=== PATIENT | female | born 1960 | race African-American/Black ===

== ENCOUNTER 2018-09-21 05:49 | Inpatient (IN) | payer OTHER ==
[2018-09-21] VITALS (8 sets, daily range): BP systolic 148–169; BP diastolic 89–103
[~2018-09-21] VITALS: Ht 167.6 cm; Wt 80.3 kg
[2018-09-21 07:14] LABS: CHLORIDE 102 mEq/L (98-107)
[2018-09-21 07:21] LABS: BASOPHILS % 0.3 % (0.0-2.0); EOSINOPHILS % 0.1 % (0.0-5.0); HEMATOCRIT. 39.8 % (36.0-48.0); HEMOGLOBIN. 12.9 g/dL (12.0-16.0); LYMPHOCYTES % 15.6 % (20.0-50.0); MEAN CORPUSCULAR HEMOGLOBIN 25.7 pg (28.0-32.0); MEAN CORPUSCULAR VOLUME 79.1 fL (81.0-99.0); MEAN PLATELET VOLUME 9.5 fl (7.4-10.4); MONOCYTES % 4.2 % (2.0-8.0); NEUTROPHILS % 79.8 % (40.0-76.0); PLATELET 225 x1000/uL (130-400); RED BLOOD CELL COUNT 5.04 mill/uL (4.2-5.4)
[2018-09-21] MEDS ORDERED: MORPHINE SULFATE 4 MG/ML CPJ (NOT FOR IM USE) IV ONE (07:30)
[2018-09-21] MEDS ORDERED: ASPIRIN 325MG EC TABLET PO ONE (07:45)
[2018-09-21] MEDS ORDERED: ENOXAPARIN 80MG/0.8ML SYR SUBCUT ONE (07:45)
[2018-09-21] MEDS ORDERED: DIPHENHYDRAMINE 50MG/ML VIAL IV PRN (10:30)
[2018-09-21] MEDS ORDERED: ONDANSETRON HCL 4MG/2ML INJ IV PRN (10:30)
[2018-09-21] MEDS ORDERED: IPRATROPIUM/ALBUTEROL 0.5-3(2.5)MG/3ML NEB INH PRN (10:30)
[2018-09-21] MEDS ORDERED: CLONIDINE 0.1MG TABLET PO PRN (10:30)
[2018-09-21] MEDS ORDERED: MAGNESIUM/ALUMINUM HYDROXIDE/SIMETHICONE 30ML UDC PO PRN (10:30)
[2018-09-21] MEDS ORDERED: MORPHINE SULFATE 2 MG/ML CPJ (NOT FOR IM USE) IV PRN (10:30)
[2018-09-21] MEDS ORDERED: ENOXAPARIN 30MG/0.3ML SYR SUBCUT SCH (10:45)
[2018-09-21] MEDS: ACETAMINOPHEN 325MG TABLET PO PRN ×2 (11:59→16:59)
[2018-09-21] MEDS: LISINOPRIL 20MG TABLET PO SCH (14:37)
[2018-09-21] MEDS: HYDROCHLOROTHIAZIDE 25MG TABLET PO SCH (14:37)
[2018-09-21] MEDS ORDERED: CLOPIDOGREL 75MG TABLET PO NR (16:00)
[2018-09-21] MEDS ORDERED: ROSU40TA PO (20:19)
[2018-09-21] MEDS ORDERED: ALBU6.7H9 INH (20:19)
[2018-09-21] MEDS ORDERED: LISI-604 PO (20:19)
[2018-09-21] MEDS ORDERED: ATORVASTATIN CALCIUM 40MG TABLET PO SCH (21:00)
[2018-09-21] MEDS: FAMOTIDINE 20MG TABLET PO SCH (21:31)
[2018-09-21] MEDS: SODIUM CHLORIDE 0.9% INJ 3ML FLUSH IVF SCH (21:38)
[2018-09-22] VITALS (12 sets, daily range): BP systolic 121–154; BP diastolic 76–98
[2018-09-22] MEDS: ENOXAPARIN 120MG/0.8ML SYR SUBCUT SCH ×2 (01:15→14:40)
[2018-09-22] MEDS: NITROGLYCERIN OINT 1GM/INCH UDPKT TD SCH ×3 (06:00→21:24)
[2018-09-22] MEDS: SODIUM CHLORIDE 0.9% INJ 3ML FLUSH IVF SCH ×3 (06:00→21:21)
[2018-09-22 06:43] LABS: INR 1.1; PROTHROMBIN TIME 11.2 sec (9.6-11.0)
[2018-09-22] MEDS ORDERED: ENOXAPARIN 30MG/0.3ML SYR SUBCUT SCH (09:00)
[2018-09-22] MEDS ORDERED: ASPIRIN 81MG EC TABLET PO SCH (09:00)
[2018-09-22] MEDS: LISINOPRIL 20MG TABLET PO SCH (09:00)
[2018-09-22] MEDS: HYDROCHLOROTHIAZIDE 25MG TABLET PO SCH (09:00)
[2018-09-22] MEDS ORDERED: NICARDIPINE 100MCG/ML 10ML VIAL (CATH LAB) IV ONE (11:29)
[2018-09-22] MEDS ORDERED: HEPARIN SODIUM 1,000 UNIT/1ML VIAL IV ONE (11:29)
[2018-09-22] MEDS ORDERED: NITROGLYCERIN 50MCG/ML 10ML VIAL (CATH LAB) IV ONE (11:29)
[2018-09-22] MEDS ORDERED: LIDOCAINE HCL 1% 20ML VIAL (Pyxis) INJ ONE (12:25)
[2018-09-22] MEDS ORDERED: IODIXANOL 320MG/ML 100 ML BOTTLE IV ONE ×3 (12:25→13:39)
[2018-09-22] MEDS ORDERED: IOHEXOL-300 100 ML BOTTLE ONE (12:25)
[2018-09-22] MEDS ORDERED: MIDAZOLAM HCL 2 MG/2 ML VIAL ONE (12:39)
[2018-09-22] MEDS ORDERED: FENTANYL CITRATE/PF 50MCG/ML 2ML VIAL ONE (12:40)
[2018-09-22] MEDS ORDERED: METOPROLOL TARTRATE 5MG/5ML VIAL IV ONE (13:01)
[2018-09-22] MEDS ORDERED: ASPIRIN 325MG TABLET ONE (14:10)
[2018-09-22] MEDS ORDERED: CLOPIDOGREL 75MG TABLET ONE (14:10)
[2018-09-22] MEDS ORDERED: ACETAMINOPHEN 325MG TABLET PO PRN (14:30)
[2018-09-22] MEDS ORDERED: ATROPINE SULFATE 1MG/10ML SYR IV PRN (14:30)
[2018-09-22] MEDS: SODIUM CHL 0.45% + KCL 20MEQ/L 1,000 ML IV SCH (15:50)
[2018-09-22] MEDS ORDERED: ATORVASTATIN CALCIUM 40MG TABLET PO SCH (21:00)
[2018-09-22] MEDS: FAMOTIDINE 20MG TABLET PO SCH (21:21)
[2018-09-22] MEDS: METOPROLOL TARTRATE 50MG TABLET PO SCH (21:23)
[2018-09-22] MEDS: ENOXAPARIN 30MG/0.3ML SYR SUBCUT SCH (21:24)
[2018-09-23] VITALS (11 sets, daily range): BP systolic 89–148; BP diastolic 41–97
[2018-09-23] MEDS: SODIUM CHLORIDE 0.9% INJ 3ML FLUSH IVF SCH ×2 (06:24→13:18)
[2018-09-23] MEDS: NITROGLYCERIN OINT 1GM/INCH UDPKT TD SCH ×2 (06:25→14:00)
[2018-09-23 07:11] LABS: BASOPHILS % 0.2 % (0.0-2.0); HEMATOCRIT. 38.8 % (36.0-48.0); HEMOGLOBIN. 12.8 g/dL (12.0-16.0); LYMPHOCYTES % 18.5 % (20.0-50.0); MEAN CORPUSCULAR HEMOGLOBIN 25.6 pg (28.0-32.0); MEAN CORPUSCULAR VOLUME 77.9 fL (81.0-99.0); MEAN PLATELET VOLUME 9.6 fl (7.4-10.4); MONOCYTES % 13.5 % (2.0-8.0); NEUTROPHILS % 67.8 % (40.0-76.0); PLATELET 203 x1000/uL (130-400); RED BLOOD CELL COUNT 4.98 mill/uL (4.2-5.4); RED CELL DISTRIBUTION WIDTH 14.4 % (11.6-14.6)
[2018-09-23 07:38] LABS: CHLORIDE 98 mEq/L (98-107)
[2018-09-23] MEDS: METOPROLOL TARTRATE 50MG TABLET PO SCH (08:49)
[2018-09-23] MEDS: HYDROCHLOROTHIAZIDE 25MG TABLET PO SCH (08:49)
[2018-09-23] MEDS: ENOXAPARIN 30MG/0.3ML SYR SUBCUT SCH (08:49)
[2018-09-23] MEDS: LISINOPRIL 20MG TABLET PO SCH (08:49)
[2018-09-23] MEDS ORDERED: ASPIRIN 325MG TABLET PO SCH (09:00)
[2018-09-23] MEDS ORDERED: CLOPIDOGREL 75MG TABLET PO SCH (09:00)
[2018-09-23] MEDS: SODIUM CHL 0.45% + KCL 20MEQ/L 1,000 ML IV SCH (12:11)
[2018-09-24] MEDS ORDERED: ENOXAPARIN 40MG/0.4ML SYR SUBCUT SCH (09:00)
== END 2018-09-23 17:30 | disposition home or self-care (01) | DRG 247 ==
LOC: ER 05:49 → ENRESERV 08:07 → 3WST 09:05
PROVIDERS: ADMIT Internal Medicine; ATTEND Internal Medicine
PROC: 027035Z Dilation of Coronary Artery, One Artery with Two Drug-eluting Intraluminal Devices, Percutaneous Approach (ICD-10-PCS; principal; 2018-09-22)
PROC: 4A023N7 Measurement of Cardiac Sampling and Pressure, Left Heart, Percutaneous Approach (ICD-10-PCS; 2018-09-22)
PROC: B2111ZZ Fluoroscopy of Multiple Coronary Arteries using Low Osmolar Contrast (ICD-10-PCS; 2018-09-22)
PROC: B2151ZZ Fluoroscopy of Left Heart using Low Osmolar Contrast (ICD-10-PCS; 2018-09-22)
DX: I21.4 Non-ST elevation (NSTEMI) myocardial infarction (principal); E66.9 Obesity, unspecified; E78.00 Pure hypercholesterolemia, unspecified; G47.00 Insomnia, unspecified; I10 Essential (primary) hypertension; I25.10 Atherosclerotic heart disease of native coronary artery without angina pectoris; J45.909 Unspecified asthma, uncomplicated; Z79.02 Long term (current) use of antithrombotics/antiplatelets; Z79.82 Long term (current) use of aspirin; Z79.899 Other long term (current) drug therapy; Z80.0 Family history of malignant neoplasm of digestive organs; Z68.28 Body mass index [BMI] 28.0-28.9, adult
CPT/HCPCS: 36415; 71045; 80048; 80061; 83880; 84484; 85347; 85379; 92928; 93005; 93306; 93458; 93970; 96372; 96374; 99291; C1725; C1769; C1874; C1887; C1893; J1200; J1644; J1650; J2250; J2270; J2405; J3010; J3480; J3490; J7070; Q9967

== ENCOUNTER 2023-04-29 13:54 | Emergency (ER) | payer OTHER ==
[~2023-04-29] VITALS: Ht 167.6 cm; Wt 128.0 kg
[~2023-04-29 13:54] MED LIST: ALBU6.7H3 INH; LISI20TA31 PO; ROSU40TA PO
[2023-04-29] MEDS ORDERED: METHYLPREDNISOLONE SOD SUCC 125MG/2ML (ACT-O-VIAL) IV STA (16:30)
[2023-04-29] MEDS ORDERED: IPRATROPIUM BROMIDE (0.02%) 0.5MG/2.5ML NEB HHN STA (16:30)
[2023-04-29 17:15] VITALS: PULSE 46; RESP 20; O2SAT 99
[2023-04-29] MEDS: ALBUTEROL (0.083%) 2.5MG/3ML NEB HHN SCH ×2 (17:15→17:36)
[2023-04-29 17:59] LABS: BASOPHILS % 0.3 % (0.0-2.0); DIFFERENTIAL COMMENT 0; EOSINOPHILS % 0.8 % (0.0-5.0); HEMATOCRIT. 38.7 % (36.0-48.0); HEMOGLOBIN. 12.1 g/dL (12.0-16.0); LYMPHOCYTES % 34.9 % (20.0-50.0); MEAN CORPUSCULAR HEMOGLOBIN 24.5 pg (28.0-32.0); MEAN CORPUSCULAR HGB CONC 31.2 g/dL (31.0-37.0); MEAN CORPUSCULAR VOLUME 78.4 fL (81.0-99.0); MEAN PLATELET VOLUME 9.7 fl (7.4-10.4); PLATELET 208 x1000/uL (130-400); RED BLOOD CELL COUNT 4.94 mill/uL (4.2-5.4); RED CELL DISTRIBUTION WIDTH 15.7 % (11.6-14.6); WHITE BLOOD COUNT 6.7 x1000/uL (4.5-11.0)
[2023-04-29 18:06] LABS: INR 1.1; PARTIAL THROMBOPLASTIN TIME 26.1 sec (23.4-31.0); PROTHROMBIN TIME 11.4 sec (9.6-11.0)
[2023-04-29 18:17] LABS: ALANINE AMINOTRANSFERASE 13 IU/L (10-49); ALBUMIN 4.2 g/dL (3.2-4.8); ASPARTATE AMINOTRANSFERASE 21 IU/L (<34); BILIRUBIN TOTAL 0.8 mg/dL (0.1-1.0); CALCIUM 9.5 mg/dL (8.7-10.4); CARBON DIOXIDE 28 mEq/L (21-32); CHLORIDE 106 mEq/L (98-107); CREATININE 0.9 mg/dL (0.6-1.0); GLUCOSE 96 mg/dL (70-105); POTASSIUM 4.3 mEq/L (3.5-5.1); SODIUM 141 mEq/L (136-145); THYROID STIMULATING HORMONE 1.24 uIU/mL (0.55-4.78); TROPONIN I HIGH SENSITIVITY 23 ng/L (3.0-34); UREA NITROGEN BLOOD 8 mg/dL (9-23)
[2023-04-29] MEDS ORDERED: METHYLPREDNISOLONE SOD SUCC 125MG/2ML (ACT-O-VIAL) IV SCH (18:30)
[2023-04-29] MEDS ORDERED: P50 MT (19:22)
[2023-04-29] MEDS ORDERED: ALBU6.7H15 INH (19:22)
[2023-04-29 19:37] VITALS: BP 127/76; PULSE 64; RESP 15; TEMP 98.6
== END 2023-04-29 19:45 | disposition home or self-care (01) ==
LOC: ER 13:54
DX: J45.901 Unspecified asthma with (acute) exacerbation (principal); I44.1 Atrioventricular block, second degree; I25.2 Old myocardial infarction; Z90.89 Acquired absence of other organs; Z98.890 Other specified postprocedural states
CPT/HCPCS: 36415; 71045; 80053; 83880; 84443; 84484; 85025; 93005; 94644; 99285